=== PATIENT | female | born 1940 | race African-American/Black ===

== ENCOUNTER 2018-11-13 20:43 | Inpatient (IN) ==
--- NOTE | 2018-11-13 21:23 | ED ---
HPI General Chief complaint: Fall Stated complaint: Dizziness Time Seen by Provider: 11/13/18 20:45 Source: EMS Mode of arrival: EMS Limitations: altered mental status History of Present Illness HPI narrative: Patient is an 78-year-old female with history of dementia; presents to the emergency room after she was found on the ground at [facility]. As per staff, patient only ambulates with a walker, after she was found on the ground. It was unknown if patient had a syncopal episode. Staff reported that patient's pulse ox was 84% on room air, when patient arrived to the ER, patient was satting 86% on room air. She is not oxygen dependent. Patient is pleasantly demented with no complaints at this time. Patient cannot provide HPI. Related Data Allergies Allergy/AdvReac Type Severity Reaction Status Date / Time Penicillins Allergy Hives Verified 11/13/18 20:50 Review of Systems ROS: all other systems reviewed are negative [facility]LY [facility] Medical History Medical History Alzheimer disease (Acute) Anemia (Acute) Dementia (Acute) Depressive disorder (Acute) Edema (Acute) GERD (gastroesophageal reflux disease) (Acute) Hyperlipidemia (Acute) Hypothyroidism (Acute) Multiple sclerosis (Acute) Type 2 diabetes mellitus (Acute) Vitamin deficiency (Acute) Social History Social History Substance History: No History of Abuse Second Hand Smoke Exposure: No Smoking Status: Never smoker How Often Do You Have a Drink Containing Alcohol: Never Recent Travel in [facility] within the Last 8 Weeks: No Recent Out of Country Travel within the Last 8 Weeks: No Immunization History Tetanus Immunization: Unsure Exam Narrative Exam Narrative: GENERAL: NAD, patient is pleasantly demented SKIN: Focused skin assessment warm/dry. HEAD: Atraumatic. Normocephalic. EYES: Pupils equal and round. No scleral icterus. No injection or drainage. ENT: No nasal bleeding or discharge. Mucous membranes pink and moist. NECK: Trachea midline. No JVD. CARDIOVASCULAR: Regular rate and rhythm. No murmur appreciated. RESPIRATORY: No accessory muscle use. Clear to auscultation. Breath sounds equal bilaterally. GASTROINTESTINAL: Abdomen soft, non-tender, nondistended. Hepatic and splenic margins not palpable. MUSCULOSKELETAL: No obvious deformities. No clubbing. No cyanosis. No edema. NEUROLOGICAL: Awake and alert. Motor grossly within normal limits. Course Initial Documented Vital Signs Temperature 100 F H 11/13/18 20:50 Pulse Rate 105 H 11/13/18 20:50 Respiratory Rate 16 11/13/18 20:50 Blood Pressure 112/54 L 11/13/18 20:50 Pulse Oximetry 86 L 11/13/18 20:50 Last Documented Vital Signs Temperature 100 F H 11/13/18 20:50 Pulse Rate 99 H 11/13/18 22:18 Respiratory Rate 16 11/13/18 20:50 Blood Pressure 112/54 L 11/13/18 20:50 Pulse Oximetry 93 L 11/13/18 22:18 Medical Decision Making MDM Narrative Medical decision making narrative: During the course of the patients emergency department visit, the patients history, examination, and differential diagnosis were reviewed with the patient. The patient was placed on a steamblaster with oximetry and frequent blood pressure monitoring. The patient had an IV access obtained and blood work sent for analysis. The patient was initially provided IVF Patient was placed on 2 L nasal cannula oxygen, her pulse ox now 91%. The patients laboratory studies were reviewed and remarkable for wbc 15.7, hgb 11.9, hct 35.3, platelets 315 Sodium 137, potassium 4.3, BUN 32, creatinine 1.56, lactic acid is 1.3 Radiology studies were reviewed and remarkable for: Right lower lobe infiltrate Patient with hypoxia with a pulse ox of 86% on room air, she is not oxygen dependent. Patient also with a white blood cell count of 15.7, her symptoms are most likely due to a right lower lobe infiltrate. Plan to admit her to the hospital for antibiotic treatment and observation. Case reviewed with Dr. Salmon who accepts patient to her service Medical Screen Exam Complete: Yes Emergency Medical Condition: Yes Medical Records Medical records reviewed: Yes I reviewed the patient's medical records. Lab Data Result diagrams: 11/13/18 21:19 11/13/18 21:19 Lab Results 11/13/18 11/13/18 11/13/18 Range/Units :19 21: 21:19 WBC 15.7 H (4.0-11.0) th/mm3 RBC 3.85 L (4.00-5.30) mil/mm3 Hgb 11.9 (11.6-15.3) gm/dL Hct 35.3 (35.0-46.0) % MCV 91.9 (80.0-100.0) fL MCH 30.9 (27.0-34.0) pg MCHC 33.6 (32.0-36.0) % RDW 14.9 (11.6-17.2) % Plt Count 315 (150-450) th/mm3 MPV 8.9 (7.0-11.0) fL Neut % (Auto) 78.6 H (16.0-70.0) % Lymph % (Auto) 15.0 (9.0-44.0) % Dent % (Auto) 3.7 (0.0-8.0) % Eos % (Auto) 1.6 (0.0-4.0) % Baso % (Auto) 1.1 (0.0-2.0) % Neut # (Auto) 12.4 H (1.8-7.7) th/mm3 Lymph # (Auto) 2.4 (1.0-4.8) th/mm3 Dent # (Auto) 0.6 (0.0-0.9) th/mm3 Eos # (Auto) 0.3 (0.0-0.4) th/mm3 Baso # (Auto) 0.2 (0.0-0.2) th/mm3 WBC Differential . Differential Comment Auto diff final PT 10.2 (9.8-11.6) sec INR 1.0 Ratio APTT 25.7 (23.4-31.7) sec Sodium 137 (136-145) meq/L Potassium 4.3 (3.5-5.1) meq/L Chloride 106 (98-107) meq/L Carbon Dioxide 24.0 (21.0-32.0) meq/L Anion Gap 7 (5-15) meq/L BUN 32 H (7-18) mg/dL Creatinine 1.56 H (0.50-1.00) mg/dL Estimated GFR 39 L (>89) mL/min Random Glucose 147 H (74-106) mg/dL Lactic Acid (0.4-2.0) mmol/L Calcium 10.5 H (8.5-10.1) mg/dL Magnesium 2.2 (1.5-2.5) mg/dL Total Bilirubin 0.3 (0.2-1.0) mg/dL AST 21 (15-37) U/L ALT 16 (10-53) U/L Alkaline Phosphatase 59 (45-117) U/L Total Creatine Kinase 47 (26-192) U/L Troponin I Less than 0.02 L (0.02-0.05) ng/mL Total Protein 8.7 H (6.4-8.2) g/dL Albumin 3.5 (3.4-5.0) g/dL Urine Color (Yellw/Straw) Urine Clarity (Clear) Urine pH (5.0-8.5) Ur Specific Lincoln (1.002-1.035) Urine Protein (Neg-Trace) mg/dL Urine Glucose (UA) (Negative) mg/dL Urine Ketones (Negative) mg/dL Urine Occult Blood (Negative) Urine Nitrate (Negative) Urine Bilirubin (Negative) Urine Urobilinogen (Less than 2) mg/dL Ur Leukocyte Esterase (Negative) Urine RBC (0-3) /hpf Urine WBC (0-5) /hpf Urine Bacteria (None) /hpf Hyaline Casts (0-3) /lpf Urine Mucus (Occasional) /lpf Micro UA Comment Ur Microscopic Review Urine Culture Comments 11/13/18 11/13/18 Range/Units 21:19 21:19 WBC (4.0-11.0) th/mm3 RBC (4.00-5.30) mil/mm3 Hgb (11.6-15.3) gm/dL Hct (35.0-46.0) % MCV (80.0-100.0) fL MCH (27.0-34.0) pg MCHC (32.0-36.0) % RDW (11.6-17.2) % Plt Count (150-450) th/mm3 MPV (7.0-11.0) fL Neut % (Auto) (16.0-70.0) % Lymph % (Auto) (9.0-44.0) % Dent % (Auto) (0.0-8.0) % Eos % (Auto) (0.0-4.0) % Baso % (Auto) (0.0-2.0) % Neut # (Auto) (1.8-7.7) th/mm3 Lymph # (Auto) (1.0-4.8) th/mm3 Dent # (Auto) (0.0-0.9) th/mm3 Eos # (Auto) (0.0-0.4) th/mm3 Baso # (Auto) (0.0-0.2) th/mm3 WBC Differential Differential Comment PT (9.8-11.6) sec INR Ratio APTT (23.4-31.7) sec Sodium (136-145) meq/L Potassium (3.5-5.1) meq/L Chloride (98-107) meq/L Carbon Dioxide (21.0-32.0) meq/L Anion Gap (5-15) meq/L BUN (7-18) mg/dL Creatinine (0.50-1.00) mg/dL Estimated GFR (>89) mL/min Random Glucose (74-106) mg/dL Lactic Acid 1.3 (0.4-2.0) mmol/L Calcium (8.5-10.1) mg/dL Magnesium (1.5-2.5) mg/dL Total Bilirubin (0.2-1.0) mg/dL AST (15-37) U/L ALT (10-53) U/L Alkaline Phosphatase (45-117) U/L Total Creatine Kinase (26-192) U/L Troponin I (0.02-0.05) ng/mL Total Protein (6.4-8.2) g/dL Albumin (3.4-5.0) g/dL Urine Color Yellow (Yellw/Straw) Urine Clarity Hazy H (Clear) Urine pH 5.0 (5.0-8.5) Ur Specific Lincoln 1.012 (1.002-1.035) Urine Protein 100 H (Neg-Trace) mg/dL Urine Glucose (UA) Negative (Negative) mg/dL Urine Ketones Negative (Negative) mg/dL Urine Occult Blood Negative (Negative) Urine Nitrate Negative (Negative) Urine Bilirubin Negative (Negative) Urine Urobilinogen Less than 2 (Less than 2) mg/dL Ur Leukocyte Esterase Trace H (Negative) Urine RBC 1 (0-3) /hpf Urine WBC 7 H (0-5) /hpf Urine Bacteria Rare H (None) /hpf Hyaline Casts 4 (0-3) /lpf Urine Mucus Few H (Occasional) /lpf Micro UA Comment Cath-culture ind Ur Microscopic Review Not Reportable Urine Culture Comments Cath-cult indicated Imaging Data Radiologist's impression: Chest X-Ray 11/13/18 21:08 CONCLUSION: 1. Minimal patchy airspace disease in the right lung base.. Head CT 11/13/18 21:08 CONCLUSION: 1. No acute intracranial abnormality. . ECG Data EKG Prior to Arrival: No Attestation: I personally reviewed and interpreted this ECG as follows: Interpretation: EKG at 2102 shows sinus tachycardia at 100 bpm, QT/QTc 3 1 4/371 , there are no acute ST-T wave changes Discharge Plan Discharge Disposition Patient Disposition: ED Admit(ED Internal Use Only) Discharge Condition Condition: Fair Discharge Order Discharge Orders: ED Use Only Admit Order (Routine); Ordered 11/13/18 Ordered By: Kailee Centeno Physicians Team ED Provider: Kailee Centeno Primary Care Provider: UNKNOWN, Discharge Interventions Interventions: Vital Signs Last Done: 11/13/18 22:19 Status ED Status: With Doctor
--- NOTE | 2018-11-13 21:30 | CT ---
EXAM DATE: 11/13/2018 9:27 PM EST AGE/SEX: 78 years / Female INDICATIONS: Fall, weakness today. CLINICAL DATA: This is the patient's initial encounter. Patient reports that signs and symptoms have been present for 1 day and indicates a pain score of Nonresponsive. MEDICAL/SURGICAL HISTORY: Alzheimer's disease. Hypothyroidism. Diabetes. None. RADIATION DOSE: 37.76 CTDI (mGy) COMPARISON: No prior exams available for comparison. TECHNIQUE: CT of the head without contrast. Using automated exposure control and adjustment of the mA and/or kV according to patient size, radiation dose was kept as low as reasonably achievable to ob tain optimal diagnostic quality images. DICOM format image data is available electronically for revi ew and comparison. FINDINGS: Cerebrum: Moderate diffuse cerebral atrophy. The ventricles are normal for degree of atrophy. No addie dence of midline shift, mass lesion, hemorrhage or acute infarction. No extraaxial fluid collections are seen. Posterior Fossa: The cerebellum and brainstem are intact. The 4th ventricle is midline. The cerebe llopontine angle is unremarkable. Extracranial: The visualized portion of the orbits is intact. Skull: The calvaria is intact. No evidence of skull fracture. CONCLUSION: 1. No acute intracranial abnormality. . Electronically signed by: Prince Naylor MD Board Certified Radiologist 11/13/2018 9:29 PM CATHERINE [place]
[2018-11-13 21:32] LABS: Baso # (Auto) 0.2 th/mm3 (0.0-0.2); Baso % (Auto) 1.1 % (0.0-2.0); Eos # (Auto) 0.3 th/mm3 (0.0-0.4); Eos % (Auto) 1.6 % (0.0-4.0); Hematocrit 35.3 % (35.0-46.0); Hemoglobin 11.9 gm/dL (11.6-15.3); Lymph # (Auto) 2.4 th/mm3 (1.0-4.8); Mean Corpuscular HGB Conc 33.6 % (32.0-36.0); Mean Corpuscular Hemoglobin 30.9 pg (27.0-34.0); Mean Corpuscular Volume 91.9 fL (80.0-100.0); Mean Platelet Volume 8.9 fL (7.0-11.0); Mono # (Auto) 0.6 th/mm3 (0.0-0.9); Mono % (Auto) 3.7 % (0.0-8.0); Neut # (Auto) 12.4 th/mm3 (1.8-7.7); Neut % (Auto) 78.6 % (16.0-70.0); Platelet Count 315 th/mm3 (150-450); Red Blood Count 3.85 mil/mm3 (4.00-5.30); Red Cell Distribution Width 14.9 % (11.6-17.2); White Blood Count 15.7 th/mm3 (4.0-11.0)
--- NOTE | 2018-11-13 21:35 | XR ---
EXAM DATE: 11/13/2018 9:32 PM EST AGE/SEX: 78 years / Female INDICATIONS: Shortness of breath. CLINICAL DATA: This is the patient's initial encounter. Patient reports that signs and symptoms have been present for 1 day and indicates a pain score of 0/10. MEDICAL/SURGICAL HISTORY: . Alzheimer's disease. Hypothyroidism. Diabetes. None. . COMPARISON: No prior exams available for comparison. FINDINGS: Minimal patchy airspace disease in the right lung base. The cardiomediastinal contours are unremarkab le. Osseous structures are intact. CONCLUSION: 1. Minimal patchy airspace disease in the right lung base.. Electronically signed by: Prince Naylor MD Board Certified Radiologist 11/13/2018 9:33 PM CATHERINE T
[2018-11-13 21:41] LABS: Bacteria,Urine Rare /hpf; Bilirubin,Urine Negative (Negative); Clarity,Urine Hazy (Clear); Color,Urine Yellow (Yellw/Straw); Glucose,Urine (UA) Negative (Negative); Hyaline Casts,Urine 4 /lpf (0-3); Leukocyte Esterase,Urine Trace (Negative); Mucus,Urine Few /lpf (Occasional); Nitrite,Urine Negative (Negative); Specific Gravity,Urine 1.012 (1.002-1.035)
[2018-11-13 21:46] LABS: Activated Partial Thrombo Time 25.7 sec (23.4-31.7); Prothrombin Time 10.2 sec (9.8-11.6)
[2018-11-13 21:58] LABS: Albumin 3.5 g/dL (3.4-5.0); Anion Gap 7 meq/L (5-15); Aspartate Aminotransferase 21 U/L (15-37); Blood Urea Nitrogen 32 mg/dL (7-18); Calcium 10.5 mg/dL (8.5-10.1); Chloride 106 meq/L (98-107); Glomerular Filtration Rate 39 mL/min (>89); Glucose,Random 147 mg/dL (74-106); Magnesium 2.2 mg/dL (1.5-2.5); Potassium 4.3 meq/L (3.5-5.1); Sodium 137 meq/L (136-145)
[2018-11-13 21:59] LABS: Alanine Aminotransferase 16 U/L (10-53)
[2018-11-13 22:02] LABS: Alkaline Phosphatase 59 U/L (45-117); Total Protein 8.7 g/dL (6.4-8.2)
[2018-11-13 22:15] LABS: Creatine Kinase 47 U/L (26-192)
[2018-11-13] MEDS ORDERED: Bisacodyl 10 MG Supp RECTAL PRN (22:36)
[2018-11-13] MEDS ORDERED: Acetaminophen 325 MG Tablet PO PRN (22:36)
--- NOTE | 2018-11-13 22:40 | P.HPIM ---
History of Present Illness Primary Care Physician: UNKNOWN History of Present Illness: CT Head with no acute findings.This is an 86-year- old female with a PMH of HTN, Hyperlipidemia, Dementia and DM who was sent to the ER from [facility] after being found on the ground. Patient unable to provide any history due to underlying dementia. Unclear if pt had mechanical fall or syncopal event. Upon EMS arrival, pt noted to by hypoxic w/ O2 sat 87% on RA, no h/o COPD or O2 dependence. On arrival, BP 112/54, HR 105, O2 sat 86% on RA, Temp 100.0. Currently O2 sat 93% on 2L NC. Creatinine 1.56, no previous labs for comparison. WBC 15.7. UA negative for UTI. CXR with patchy airspace disease right lung base. S/p Levaquin in ER. Diagnosis (1) PNA (pneumonia): (2) Hypoxia: (3) Fall: (4) DM (diabetes mellitus): Inpatient Certification Inpatient Certification: I certify that the inpatient services were ordered in accordance with Medicare regulations governing the order. This includes certification that hospital inpatient services are reasonable and necessary and in the case of services not specified as inpatient-only under 42 CFR 419.22(n), that they are appropriately provided as inpatient services in accordance to with the 2-midnight benchmark under 43 CFR 412.3(e) Estimated Total Length of Stay (Days): 2 Plans for Post Hospital Care: Not yet determined Review of Systems PAST FAMILY HISTORY: Unknown ROS Unobtainable: unobtainable due to mental condition [facility] Medical History Medical History Alzheimer disease (Acute) Anemia (Acute) Dementia (Acute) Depressive disorder (Acute) Edema (Acute) GERD (gastroesophageal reflux disease) (Acute) Hyperlipidemia (Acute) Hypothyroidism (Acute) Multiple sclerosis (Acute) Type 2 diabetes mellitus (Acute) Vitamin deficiency (Acute) Social History Social History Substance History: No History of Abuse Second Hand Smoke Exposure: No Smoking Status: Never smoker How Often Do You Have a Drink Containing Alcohol: Never Recent Travel in [facility] within the Last 8 Weeks: No Recent Out of Country Travel within the Last 8 Weeks: No Immunization History Tetanus Immunization: Unsure Medications and Allergies Allergies Allergy/AdvReac Type Severity Reaction Status Date / Time Penicillins Allergy Hives Verified 11/13/18 20:50 Home Medications Medication Instructions Recorded Confirmed Type acetaminophen 650 mg PO Q6H PRN 11/13/18 11/13/18 History amlodipine 2.5 mg PO DAILY 11/13/18 11/13/18 History aspirin [Aspir-81] 81 mg PO DAILY 11/13/18 11/13/18 History cholecalciferol (vitamin D3) 4,000 unit PO DAILY 11/13/18 11/13/18 History [Vitamin D3] diclofenac sodium [Voltaren] 2 g TOPICAL QID 11/13/18 11/13/18 History donepezil [Aricept] 10 mg PO DAILY 11/13/18 11/13/18 History escitalopram oxalate 5 mg PO DAILY 11/13/18 11/13/18 History furosemide 20 mg PO DAILY 11/13/18 11/13/18 History gabapentin 400 mg PO BID 11/13/18 11/13/18 History gemfibrozil 600 mg PO BID 11/13/18 11/13/18 History insulin glargine U-300 conc 140 unit SUBCUT DAILY 11/13/18 11/13/18 History [Toujeo Max U-300 SoloStar] lactulose 10 g PO TID 11/13/18 11/13/18 History levothyroxine 25 mcg PO DAILY 11/13/18 11/13/18 History liraglutide [Victoza 2-Juanito] 1.8 mg SUBCUT DAILY 11/13/18 11/13/18 History loperamide 2 mg PO BID 11/13/18 11/13/18 History losartan [Cozaar] 50 mg PO DAILY 11/13/18 11/13/18 History memantine 10 mg PO BID 11/13/18 11/13/18 History multivitamin 1 cap PO DAILY 11/13/18 11/13/18 History omeprazole 20 mg PO DAILY 11/13/18 11/13/18 History psyllium husk (aspartame) 3.4 g PO DAILY 11/13/18 11/13/18 History [Metamucil Fiber Singles] spironolactone 25 mg PO DAILY 11/13/18 11/13/18 History vitamin E 400 unit PO DAILY 11/13/18 11/13/18 History Active Medications: Active Medications Acetaminophen (Tylenol) 650 mg PO Q4H PRN PRN Reason: Temp > 100.4 Al Hydroxide/Mg Hydroxide (Milk Of Magnesia Liq) 30 ml PO Q12H PRN PRN Reason: Mild Constipation Albuterol (Duoneb Neb (Prn)) 1 ampul NEB Q4HR NEB PRN PRN Reason: SOB/WHEEZING Bisacodyl (Dulcolax Supp) 10 mg RECTAL DAILY PRN PRN Reason: SEVERE CONSITIPATION Levofloxacin/Dextrose (Levaquin 750 Mg Premix Inj) 150 mls @ 100 mls/hr IV.SIG ONCE ONE Stop: 11/13/18 23:14 Last Admin: 11/13/18 22:13 Dose: 100 mls/hr Levofloxacin/Dextrose (Levaquin 750 Mg Premix Inj) 150 mls @ 100 mls/hr IV.SIG Q24H PING Lactulose (Lactulose Liq) 30 ml PO DAILY PRN PRN Reason: SEVERE CONSITIPATION Ondansetron HCl (Zofran Inj) 4 mg IV.PUSH Q6H PRN PRN Reason: NAUSEA OR VOMITING Senna/Docusate Sodium (Mary-Colace) 1 tab PO BID PING Sennosides (Senokot) 17.2 mg PO Q12H PRN PRN Reason: Moderate Constipation Sodium Chloride (Ns Flush) 2 ml IV.FLUSH BID PING Sodium Chloride (Ns Flush) 2 ml IV.FLUSH PRN PRN PRN Reason: FLUSH AFTER USING IV ACCESS Physical Exam Vital signs: Last Vital Signs Temp 100 F H 11/13/18 20:50 Pulse 99 H 11/13/18 22:18 Resp 16 11/13/18 20:50 BP 97/52 L 11/13/18 22:19 Pulse Ox 93 L 11/13/18 22:18 Intake & Output 11/11/18 11/12/18 11/13/18 11/14/18 06:59 06:59 06:59 06:59 Weight 62.596 kg Narrative: PE: GENERAL: Pleasantly demented elderly female in no acute distress. SKIN: Focused skin assessment warm and dry. HEENT: PERRLA, EOMI. No scleral icterus or conjunctival pallor. No lid lag or facial droop. CARDIOVASCULAR: Regular rate and rhythm. No obvious murmurs to auscultation. No chest tenderness to palpation. RESPIRATORY: No obvious rhonchi or wheezing. Clear to auscultation. Breath sounds equal bilaterally. GASTROINTESTINAL: Abdomen soft, non-tender, nondistended. BS normal. MUSCULOSKELETAL: Extremities without clubbing, cyanosis, or edema. No obvious deformities. NEUROLOGICAL: Awake, alert. No focal neurologic deficits. Moving both upper and lower extremities spontaneously. PSYCHIATRIC: Appropriate mood and affect. Insight and judgment normal. Results Labs CBC & Chem 7: 11/13/18 21:19 11/13/18 21:19 Imaging Impressions Chest X-Ray 11/13/18 21:08 CONCLUSION: 1. Minimal patchy airspace disease in the right lung base.. Head CT 11/13/18 21:08 CONCLUSION: 1. No acute intracranial abnormality. . Caprini VTE Risk Assessment Caprini VTE Risk Assessment: No/Low Risk (score <= 1) Caprini Risk Assessment Model: Point Value = 1 Point Value = 2 Point Value = 3 Point Value = 5 Age 41-60 Minor surgery BMI > 25 kg/m2 Swollen legs Varicose veins or History of unexplained or recurrent spontaneous Oral contraceptives or hormone replacement Sepsis (< 1 month) Serious lung disease, including pneumonia (< 1 month) Abnormal pulmonary function Acute myocardial infarction Congestive heart failure (< 1 month) History of inflammatory bowel disease Medical patient at bed rest Age 61-74 Arthroscopic surgery Major open surgery (> 45 min) Laparoscopic surgery (> 45 min) Malignancy Confined to bed (> 72 hours) Immobilizing plaster cast Central venous access Age >= 75 History of VTE Family history of VTE Factor V Leiden Prothrombin [id number] Lupus anticoagulant Anticardiolipin antibodies Elevated serum homocysteine Heparin-induced thrombocytopenia Other congenital or acquired thrombophilia Stroke (< 1 month) Elective arthroplasty Hip, pelvis, or leg fracture Acute spinal cord injury (< 1 month) Prophylaxis Regimen: Total Risk Factor Score Risk Level Prophylaxis Regimen 0-1 Low Early ambulation 2 Moderate Order ONE of the following: *Sequential Compression Device (SCD) *Heparin 5000 units SQ BID 3-4 Higher Order ONE of the following medications: *Heparin 5000 units SQ TID *Enoxaparin/Lovenox 40 mg SQ daily (WT < 150 kg, CrCl > 30 mL/min) *Enoxaparin/Lovenox 30 mg SQ daily (WT < 150 kg, CrCl > 10-29 mL/min) *Enoxaparin/Lovenox 30 mg SQ BID (WT < 150 kg, CrCl > 30 mL/min) AND/OR *Sequential Compression Device (SCD) 5 or more Highest Order ONE of the following medications: *Heparin 5000 units SQ TID (Preferred with Epidurals) *Enoxaparin/Lovenox 40 mg SQ daily (WT < 150 kg, CrCl > 30 mL/min) *Enoxaparin/Lovenox 30 mg SQ daily (WT < 150 kg, CrCl > 10-29 mL/min) *Enoxaparin/Lovenox 30 mg SQ BID (WT < 150 kg, CrCl > 30 mL/min) AND *Sequential Compression Device (SCD) Assessment and Plan (1) PNA (pneumonia): Code(s): J18.9 - Pneumonia, unspecified organism Status: Acute (2) Hypoxia: Code(s): R09.02 - Hypoxemia Status: Acute (3) Fall: Code(s): W19.XXXA - Unspecified fall, initial encounter Status: Acute (4) DM (diabetes mellitus): Code(s): E11.9 - Type 2 diabetes mellitus without complications Status: Acute A/P: 1. Fall: found down at [facility], unclear if syncope/mechanical fall. Pt with no complaints. CT Head w/ no acute findings. Trop negative, check serial cardiac enzymes to eval for possible underlying ischemia. PT for eval/ tx. 2. Hypoxia: O2 sat 87% on RA, no reported h/o COPD or O2 Dependence, likely secondary to PNA, monitor O2, re-eval prior to d/c for home O2 needs. 3. PNA: CXR w/ right base infiltrate, s/p Levaquin IV, continue w/ IV Abx, DuoNeb prn. 4. DM: Sliding scale w/ Accu-cheks 5. Dementia: Pleasantly demented, at baseline, resume home medications. 6. DVT Prophylaxis: SCD/Teds 7. Social work for d/c planning as needed. 8. Case discussed w/ ER physician at length, labs/records/imaging reviewed by me.
[2018-11-13] MEDS ORDERED: Dextrose 50% in Water 50 ML Vial IV.PUSH PRN (22:44)
[2018-11-14 04:05] LABS: Baso # (Auto) 0.3 th/mm3 (0.0-0.2); Baso % (Auto) 1.9 % (0.0-2.0); Eos # (Auto) 0.2 th/mm3 (0.0-0.4); Eos % (Auto) 1.4 % (0.0-4.0); Hematocrit 32.1 % (35.0-46.0); Lymph # (Auto) 3.2 th/mm3 (1.0-4.8); Lymph % (Auto) 24.4 % (9.0-44.0); Mean Corpuscular HGB Conc 34.1 % (32.0-36.0); Mean Corpuscular Hemoglobin 31.2 pg (27.0-34.0); Mean Corpuscular Volume 91.4 fL (80.0-100.0); Mean Platelet Volume 8.1 fL (7.0-11.0); Mono % (Auto) 7.9 % (0.0-8.0); Neut # (Auto) 8.5 th/mm3 (1.8-7.7); Neut % (Auto) 64.4 % (16.0-70.0); Platelet Count 287 th/mm3 (150-450); Red Blood Count 3.52 mil/mm3 (4.00-5.30); White Blood Count 13.2 th/mm3 (4.0-11.0)
[2018-11-14 04:29] LABS: Alanine Aminotransferase 13 U/L (10-53); Anion Gap 9 meq/L (5-15); Aspartate Aminotransferase 19 U/L (15-37); Blood Urea Nitrogen 31 mg/dL (7-18); Calcium 10.2 mg/dL (8.5-10.1); Carbon Dioxide 23.4 meq/L (21.0-32.0); Chloride 107 meq/L (98-107); Glomerular Filtration Rate 45 mL/min (>89); Glucose,Random 65 mg/dL (74-106); Potassium 4.3 meq/L (3.5-5.1); Sodium 139 meq/L (136-145)
[2018-11-14 04:33] LABS: Alkaline Phosphatase 50 U/L (45-117)
[2018-11-14] MEDS: Insulin NovoLOG Aspart Correctional Sugar Inj SQ SCH ×4 (07:57→23:21)
[2018-11-14] MEDS: Oseltamivir Liq 30 MG/5 ML Oral Syringe PO SCH ×3 (08:44→23:21)
[2018-11-14] MEDS: Escitalopram 10 MG Tablet PO SCH (08:45)
[2018-11-14] MEDS: Gabapentin 400 MG Capsule PO SCH ×2 (08:46→23:20)
[2018-11-14] MEDS: Senna/Docusate Sodium 8.6/50 MG Tablet PO SCH ×2 (08:46→23:21)
[2018-11-14] MEDS ORDERED: Oseltamivir Phosphate 30 MG Capsule PO SCH (09:00)
--- NOTE | 2018-11-14 10:12 | P.PNIM ---
Subjective Interval history: Follow-up visit influenza, pneumonia, status post fall. Patient seen and examined today. Awake and alert. States it is 2012. States that she lives just "right there." Patient is pleasant. Denies any pain or discomfort. Denies fevers, chills, nausea, vomiting, diarrhea. Denies any cough, expectoration, denies any dysuria. Physical Exam Vital signs: Vital Signs 11/13/18 20:50 11/13/18 20:54 11/13/18 22:18 Temperature 100 F H Pulse Rate 105 H 99 H Respiratory Rate 16 Blood Pressure 112/54 L Pulse Oximetry 86 L 91 L 93 L 11/13/18 22:19 11/14/18 00:25 11/14/18 04:15 Temperature 99.7 F H 97.3 F L Pulse Rate 91 H 72 Respiratory Rate 18 18 Blood Pressure 97/52 L 116/20 L 92/51 L Pulse Oximetry 95 97 11/14/18 08:25 11/14/18 09:18 Temperature 97.2 F L Pulse Rate 71 Respiratory Rate 16 Blood Pressure 110/59 L Pulse Oximetry 96 95 Intake & Output 11/13/18 11/14/18 11/14/18 18:59 06:59 18:59 Intake Total 150 / 150 Balance 150 / 150 Weight 62.5 kg Intake: IV 150 / 150 Levaquin 750 mg Premix Inj 150 150 / 150 ML @ 100 mls/hr IV.SIG ONCE ONE Rx#:[id number] Other: # Voids 1 Narrative: GENERAL: This is a pleasantly confused, well-developed patient, in no apparent distress. SKIN: Warm and dry HEENT: Normocephalic. Pupils equal round and reactive. Nose without bleeding. Airway patent. NECK: Trachea midline. CARDIOVASCULAR: Regular rate and rhythm without murmurs, gallops, or rubs. RESPIRATORY: Diminished bases no wheezes, rales, or rhonchi. GASTROINTESTINAL: Abdomen soft, non-tender, nondistended. Bowel Sounds normoactive x4. MUSCULOSKELETAL: Extremities without clubbing, cyanosis, or edema. NEUROLOGICAL: Awake and alert. Moves all extremities. Normal speech. Confused. Results - Labs CBC & Chem 7: 11/14/18 03:53 11/14/18 03:53 Laboratory Results - last 24 hr 11/13/18 11/13/18 11/13/18 21:19 21:19 21:19 WBC 15.7 H RBC 3.85 L Hgb 11.9 Hct 35.3 MCV 91.9 MCH 30.9 MCHC 33.6 RDW 14.9 Plt Count 315 MPV 8.9 Neut % (Auto) 78.6 H Lymph % (Auto) 15.0 Gillespie % (Auto) 3.7 Eos % (Auto) 1.6 Baso % (Auto) 1.1 Neut # (Auto) 12.4 H Lymph # (Auto) 2.4 Gillespie # (Auto) 0.6 Eos # (Auto) 0.3 Baso # (Auto) 0.2 WBC Differential . Differential Comment Auto diff final PT 10.2 INR 1.0 APTT 25.7 Sodium 137 Potassium 4.3 Chloride 106 Carbon Dioxide 24.0 Anion Gap 7 BUN 32 H Creatinine 1.56 H Estimated GFR 39 L POC Glucose Random Glucose 147 H Lactic Acid Calcium 10.5 H Magnesium 2.2 Total Bilirubin 0.3 AST 21 ALT 16 Alkaline Phosphatase 59 Total Creatine Kinase 47 Troponin I Less than 0.02 L Total Protein 8.7 H Albumin 3.5 Urine Color Urine Clarity Urine pH Ur Specific [place] Urine Protein Urine Glucose (UA) Urine Ketones Urine Occult Blood Urine Nitrate Urine Bilirubin Urine Urobilinogen Ur Leukocyte Esterase Urine RBC Urine WBC Urine Bacteria Hyaline Casts Urine Mucus Micro UA Comment Ur Microscopic Review Urine Culture Comments 11/13/18 11/13/1818 21:19 21:19 03:53 WBC 13.2 H RBC 3.52 L Hgb 11.0 L Hct 32.1 L MCV 91.4 MCH 31.2 MCHC 34.1 RDW 15.0 Plt Count 287 MPV 8.1 Neut % (Auto) 64.4 Lymph % (Auto) 24.4 Gillespie % (Auto) 7.9 Eos % (Auto) 1.4 Baso % (Auto) 1.9 Neut # (Auto) 8.5 H Lymph # (Auto) 3.2 Gillespie # (Auto) 1.0 H Eos # (Auto) 0.2 Baso # (Auto) 0.3 H WBC Differential . Differential Comment Auto diff final PT INR APTT Sodium Potassium Chloride Carbon Dioxide Anion Gap BUN Creatinine Estimated GFR POC Glucose Random Glucose Lactic Acid 1.3 Calcium Magnesium Total Bilirubin AST ALT Alkaline Phosphatase Total Creatine Kinase Troponin I Total Protein Albumin Urine Color Yellow Urine Clarity Hazy H Urine pH 5.0 Ur Specific [place] 1.012 Urine Protein 100 H Urine Glucose (UA) Negative Urine Ketones Negative Urine Occult Blood Negative Urine Nitrate Negative Urine Bilirubin Negative Urine Urobilinogen Less than 2 Ur Leukocyte Esterase Trace H Urine RBC 1 Urine WBC 7 H Urine Bacteria Rare H Hyaline Casts 4 Urine Mucus Few H Micro UA Comment Cath-culture ind Ur Microscopic Review Not Reportable Urine Culture Comments Cath-cult indicated 11/14/18 11/14/18 11/14/18 03:53 07:56 09:26 WBC RBC Hgb Hct MCV MCH MCHC RDW Plt Count MPV Neut % (Auto) Lymph % (Auto) Gillespie % (Auto) Eos % (Auto) Baso % (Auto) Neut # (Auto) Lymph # (Auto) Gillespie # (Auto) Eos # (Auto) Baso # (Auto) WBC Differential Differential Comment PT INR APTT Sodium 139 Potassium 4.3 Chloride 107 Carbon Dioxide 23.4 Anion Gap 9 BUN 31 H Creatinine 1.38 H Estimated GFR 45 L POC Glucose 67 L 113 H Random Glucose 65 L Lactic Acid Calcium 10.2 H Magnesium Total Bilirubin 0.2 AST 19 ALT 13 Alkaline Phosphatase 50 Total Creatine Kinase Troponin I Less than 0.02 L Total Protein 8.0 D Albumin 3.0 L Urine Color Urine Clarity Urine pH Ur Specific [place] Urine Protein Urine Glucose (UA) Urine Ketones Urine Occult Blood Urine Nitrate Urine Bilirubin Urine Urobilinogen Ur Leukocyte Esterase Urine RBC Urine WBC Urine Bacteria Hyaline Casts Urine Mucus Micro UA Comment Ur Microscopic Review Urine Culture Comments Microbiology 11/13/18 22:06 Nasal Wash Influenza Types A,B Antigen - Final Positive for Flu A Antigen - Imaging Impressions Chest X-Ray 11/13/18 21:08 CONCLUSION: 1. Minimal patchy airspace disease in the right lung base.. Head CT 11/13/18 21:08 CONCLUSION: 1. No acute intracranial abnormality. . Assessment and Plan - Assessment (1) PNA (pneumonia) Code(s): J18.9 - Pneumonia, unspecified organism Status: Acute (2) Hypoxia Code(s): R09.02 - Hypoxemia Status: Acute (3) Fall Code(s): W19.XXXA - Unspecified fall, initial encounter Status: Acute (4) DM (diabetes mellitus) Code(s): E11.9 - Type 2 diabetes mellitus without complications Status: Acute Plan: A/P: 1. Fall: found down at [facility], unclear if syncope/mechanical fall. Pt with no complaints. CT Head w/ no acute findings. Trop negative, check serial cardiac enzymes to eval for possible underlying ischemia. PT for eval/ tx. 2. Hypoxia: O2 sat 87% on RA, no reported h/o COPD or O2 Dependence, likely secondary to PNA, monitor O2, re-eval prior to d/c for home O2 needs. 3. PNA: CXR w/ right base infiltrate, s/p Levaquin IV, continue w/ IV Abx, DuoNeb prn. 4. DM: Sliding scale w/ Accu-cheks 5. Dementia: Pleasantly demented, at baseline, resume home medications. 6. DVT Prophylaxis: SCD/Teds 7. Social work for d/c planning as needed. 8. Case discussed w/ ER physician at length, labs/records/imaging reviewed by me. - Plan 86-year-old female with a PMH of HTN, Hyperlipidemia, Dementia and DM who was sent to the ER from [facility] after being found on the ground. Status post fall at [facility] -unclear if syncope/mechanical fall -CT Head w/ no acute findings. Trop negative x2 -Patient without any complaints of pain or discomfort. Able to stand up and transfer to [facility] earlier with assistance of [employer] -PT for eval/tx Acute pneumonia, secondary to influenza Hypoxia, O2 sat 87% on RA, no reported h/o COPD or O2 Dependence -Chest x-ray showed right base infiltrates -Status post Levaquin IV, will continue, will switch to p.o. -Influenza swab positive, droplet precaution -Start Tamiflu -Duo nebs as needed -Keep O2 sat greater than 92%, O2 nasal cannula as needed. DM2, diabetic nephropathy No acute complication -Sliding scale w/ Accu-cheks -Monitor for hypoglycemia Dementia -Pleasantly demented, at baseline, resume home medications. Full code. DVT Prophylaxis SCD/Teds Discussed Condition With: Patient, nursing, Dr. Crowe, case management Discharge Planning: Plan to discharge back to [facility] within 1-2 days. If significantly improved tomorrow we may discharge tomorrow.
[2018-11-14] MEDS: Sod Chloride 0.9% Inj 1,000 ML IV.CONT SCH (15:15)
[2018-11-15] MEDS: Sod Chloride 0.9% Inj 1,000 ML IV.CONT SCH (06:19)
[2018-11-15] MEDS ORDERED: levoFLOXacin 500 MG Tablet PO SCH (09:00)
--- NOTE | 2018-11-15 09:46 | P.DS ---
Date of admission: 11/13/18 22:25 Primary care physician: UNKNOWN Attending physician on discharge: Surya King Anticipated date of discharge: 11/15/18 Brief History from admission: CT Head with no acute findings.This is an 86-year-old female with a PMH of HTN , Hyperlipidemia, Dementia and DM who was sent to the ER from [facility] after being found on the ground. Patient unable to provide any history due to underlying dementia. Unclear if pt had mechanical fall or syncopal event. Upon EMS arrival, pt noted to by hypoxic w/ O2 sat 87% on RA, no h/o COPD or O2 dependence. On arrival, BP 112/54, HR 105, O2 sat 86% on RA, Temp 100.0. Currently O2 sat 93% on 2L NC. Creatinine 1.56, no previous labs for comparison. WBC 15.7. UA negative for UTI. CXR with patchy airspace disease right lung base. S/p Levaquin in ER. Patient update on day of discharge: Follow-up visit influenza, pneumonia, status post fall. Patient seen and examined today. Awake and alert. Reports she is doing a lot better. States she feels good able to sit up at the edge of the bed and eat her breakfast by herself. States physical therapy has seen her and did some exercises. More coherent with conversation but still has some confusion on the date and the place where she is at. Denies pain and discomfort. Denies SOB/ dyspnea. Denies chest pain, palpitations, headaches, dizziness. Denies fevers, chills, n/ v/d. Denies dysuria. DS: Diagnosis - Discharge Diagnosis (1) PNA (pneumonia) Status: Acute (2) Hypoxia Status: Acute (3) Fall Status: Acute (4) DM (diabetes mellitus) Status: Acute (5) Pneumonia and influenza Status: Acute DS: Medications - Discharge Medications Prescriptions: levofloxacin 500 mg PO DAILY 5 Days #5 tab oseltamivir [Tamiflu] 30 mg PO BID 4 Days #8 cap DS: Summary Hospital Course: 86-year-old female with a PMH of HTN, Hyperlipidemia, Dementia and DM who was sent to the ER from [facility] after being found on the ground. CT of the head without any acute findings, this is unclear if it is a mechanical or syncopal fall at [facility]. Patient without any complaints of pain or discomfort. [facility]ble [facility] stand [facility] and [facility] with assistance of [employer]. Physical therapy has evaluated the patient and has recommended for PT at rehabilitation center as patient has unsteady gait. Found to have acute pneumonia. Chest x-ray showed right base infiltrates. She got IV Levaquin and was switched to p.o. Influenza swab was also positive and was started on Tamiflu. Duo nebs were provided with the patient which significantly improves her oxygenation. States her breathing has been significantly improved. O2 sat resting and with exertion between 96-98% on RA. Other comorbid conditions such as diabetes has been addressed by providing patient with insulin sliding scale. Blood glucose has been 70s-150s. Patient creatinine was initially 1.56 possibly with chronic kidney disease secondary to diabetes with diabetic nephropathy. This has significantly improved to 1.19. She will continue with antibiotic Levaquin in the outpatient and also Tamiflu which has been dose accordingly to her renal function. Patient has met maximal benefits of hospitalization. Clinically stable for discharge and [facility] facility [facility]. - Time Spent with Patient Total time spent providing and/or coordinating discharge services: Greater than 30 minutes - Quality: VTE Deep Vein Thrombosis/Pulmonary Embolism Present on Admission: No Exam Vital signs: Vital Signs 11/14/18 12:26 11/14/18 16:59 11/14/18 20:00 Temperature 97.6 F 98.2 F 97.9 F Pulse Rate 70 67 92 H Respiratory Rate 14 14 16 Blood Pressure 97/51 L 114/57 L 99/65 L Pulse Oximetry 94 L 98 94 L 11/15/18 00:00 11/15/18 04:00 11/15/18 08:00 Temperature 98.0 F 97.9 F 97.4 F L Pulse Rate 63 56 L 57 L Respiratory Rate 20 17 20 Blood Pressure 122/65 106/53 L 106/59 L Pulse Oximetry 98 97 99 Intake & Output 11/14/18 11/15/18 11/15/18 18:59 06:59 18:59 Output Total 600 / 600 Balance -600 / -600 Weight 62.5 kg Output: Urine 600 / 600 Other: Date of Last Bowel Movement 11/14/18 # Bowel Movements 1 Narrative: GENERAL: This is a pleasantly confused, well-developed patient, in no apparent distress. SKIN: Warm and dry HEENT: Normocephalic. Pupils equal round and reactive. Nose without bleeding. Airway patent. NECK: Trachea midline. CARDIOVASCULAR: Regular rate and rhythm without murmurs, gallops, or rubs. RESPIRATORY: No wheezes, rales, or rhonchi. Clear to auscultation GASTROINTESTINAL: Abdomen soft, non-tender, nondistended. Bowel Sounds normoactive x4. MUSCULOSKELETAL: Extremities without clubbing, cyanosis, or edema. NEUROLOGICAL: Awake and alert. Moves all extremities. Normal speech. Confused. Results Procedures completed during hospitalization: None Labs on day of discharge: Labs from last 24 hours 11/15/18 11/14/18 11/14/18 09:07 23:20 16:46 POC Glucose 156 H 85 76 Troponin I 11/14/18 11/14/18 12:39 10:12 POC Glucose 72 Troponin I Less than 0.02 L Preliminary micro results at discharge 11/13/18 21:19 Urine Culture - Preliminary Clean Catch Urine No growth in 24 hours 11/13/18 21:13 Aerobic Blood Culture - Preliminary Blood - Peripheral No growth in 1 day Anaerobic Blood Culture - Preliminary No growth in 1 day 11/13/18 21:19 Aerobic Blood Culture - Preliminary Blood - Peripheral No growth in 1 day Anaerobic Blood Culture - Preliminary No growth in 1 day - Impressions ITS Impressions Chest X-Ray 11/13/18 21:08 CONCLUSION: 1. Minimal patchy airspace disease in the right lung base.. Head CT 11/13/18 21:08 CONCLUSION: 1. No acute intracranial abnormality. . Discharge Plan - Discharge Disposition Patient Disposition: Discharge to SNF - Discharge Condition Condition: Stable - Discharge Order Discharge Orders: Discharge Order (Routine); Ordered 11/15/18 Ordered By: Quoc Junior - Physicians Team Primary Care Provider: UNKNOWN, Attending Provider: Surya King
--- NOTE | 2018-11-15 09:46 | P.PNIM ---
Subjective Interval history: Follow-up visit influenza, pneumonia, status post fall. Patient seen and examined today. Awake and alert. Reports she is doing a lot better. States she feels good able to sit up at the edge of the bed and eat her breakfast by herself. States physical therapy has seen her and did some exercises. More coherent with conversation but still has some confusion on the date and the place where she is at. Denies pain and discomfort. Denies SOB/ dyspnea. Denies chest pain, palpitations, headaches, dizziness. Denies fevers, chills, n/ v/d. Denies dysuria. Physical Exam Vital signs: Vital Signs 11/14/18 12:26 11/14/18 16:59 11/14/18 20:00 Temperature 97.6 F 98.2 F 97.9 F Pulse Rate 70 67 92 H Respiratory Rate 14 14 16 Blood Pressure 97/51 L 114/57 L 99/65 L Pulse Oximetry 94 L 98 94 L 11/15/18 00:00 11/15/18 04:00 11/15/18 08:00 Temperature 98.0 F 97.9 F 97.4 F L Pulse Rate 63 56 L 57 L Respiratory Rate 20 17 20 Blood Pressure 122/65 106/53 L 106/59 L Pulse Oximetry 98 97 99 Intake & Output 11/14/18 11/15/18 11/15/18 18:59 06:59 18:59 Output Total 600 / 600 Balance -600 / -600 Weight 62.5 kg Output: Urine 600 / 600 Other: Date of Last Bowel Movement 11/14/18 # Bowel Movements 1 Narrative: GENERAL: This is a pleasantly confused, well-developed patient, in no apparent distress. SKIN: Warm and dry HEENT: Normocephalic. Pupils equal round and reactive. Nose without bleeding. Airway patent. NECK: Trachea midline. CARDIOVASCULAR: Regular rate and rhythm without murmurs, gallops, or rubs. RESPIRATORY: No wheezes, rales, or rhonchi. Clear to auscultation GASTROINTESTINAL: Abdomen soft, non-tender, nondistended. Bowel Sounds normoactive x4. MUSCULOSKELETAL: Extremities without clubbing, cyanosis, or edema. NEUROLOGICAL: Awake and alert. Moves all extremities. Normal speech. Confused. Results - Labs CBC & Chem 7: 11/15/18 08:53 11/15/18 08:53 Laboratory Results - last 24 hr 11/14/18 11/14/18 11/14/18 10:12 12:39 16:46 POC Glucose 72 76 Troponin I Less than 0.02 L 11/14/18 11/15/18 23:20 09:07 POC Glucose 85 156 H Troponin I Microbiology 11/13/18 21:19 Clean Catch Urine Urine Culture - Preliminary No growth in 24 hours 11/13/18 21:13 Blood - Peripheral Aerobic Blood Culture - Preliminary No growth in 1 day 11/13/18 21:13 Blood - Peripheral Anaerobic Blood Culture - Preliminary No growth in 1 day 11/13/18 21:19 Blood - Peripheral Aerobic Blood Culture - Preliminary No growth in 1 day 11/13/18 21:19 Blood - Peripheral Anaerobic Blood Culture - Preliminary No growth in 1 day Assessment and Plan - Assessment (1) PNA (pneumonia) Code(s): J18.9 - Pneumonia, unspecified organism Status: Acute (2) Hypoxia Code(s): R09.02 - Hypoxemia Status: Acute (3) Fall Code(s): W19.XXXA - Unspecified fall, initial encounter Status: Acute (4) DM (diabetes mellitus) Code(s): E11.9 - Type 2 diabetes mellitus without complications Status: Acute Plan: A/P: 1. Fall: found down at [facility], unclear if syncope/mechanical fall. Pt with no complaints. CT Head w/ no acute findings. Trop negative, check serial cardiac enzymes to eval for possible underlying ischemia. PT for eval/ tx. 2. Hypoxia: O2 sat 87% on RA, no reported h/o COPD or O2 Dependence, likely secondary to PNA, monitor O2, re-eval prior to d/c for home O2 needs. 3. PNA: CXR w/ right base infiltrate, s/p Levaquin IV, continue w/ IV Abx, DuoNeb prn. 4. DM: Sliding scale w/ Accu-cheks 5. Dementia: Pleasantly demented, at baseline, resume home medications. 6. DVT Prophylaxis: SCD/Teds 7. Social work for d/c planning as needed. 8. Case discussed w/ ER physician at length, labs/records/imaging reviewed by me. - Plan 86-year-old female with a PMH of HTN, Hyperlipidemia, Dementia and DM who was sent to the ER from [facility] after being found on the ground. Status post fall at [facility] -unclear if syncope/mechanical fall -CT Head w/ no acute findings. Trop negative x2 -Patient without any complaints of pain or discomfort. [facility] [employer] -PT for eval/tx Acute pneumonia, secondary to influenza Hypoxia, O2 sat 87% on RA, no reported h/o COPD or O2 Dependence -Chest x-ray showed right base infiltrates -Status post Levaquin IV, will continue, will switch to p.o. -Influenza swab positive, droplet precaution -Start Tamiflu -Duo nebs as needed -Keep O2 sat greater than 92%, O2 nasal cannula as needed. -Improving. DM2, diabetic nephropathy No acute complication -Sliding scale w/ Accu-cheks -Monitor for hypoglycemia Dementia -Pleasantly demented, at baseline, resume home medications. Full code. DVT Prophylaxis SCD/Teds Discussed Condition With: Patient, nursing, CM Discharge Planning: Plan to discharge to [facility] today.
[2018-11-15 10:00] LABS: Baso # (Auto) 0.1 th/mm3 (0.0-0.2); Baso % (Auto) 0.9 % (0.0-2.0); Eos # (Auto) 0.5 th/mm3 (0.0-0.4); Eos % (Auto) 6.3 % (0.0-4.0); Hematocrit 31.5 % (35.0-46.0); Hemoglobin 10.8 gm/dL (11.6-15.3); Lymph # (Auto) 2.6 th/mm3 (1.0-4.8); Lymph % (Auto) 32.7 % (9.0-44.0); Mean Corpuscular HGB Conc 34.3 % (32.0-36.0); Mean Corpuscular Hemoglobin 31.8 pg (27.0-34.0); Mean Corpuscular Volume 92.7 fL (80.0-100.0); Mean Platelet Volume 8.7 fL (7.0-11.0); Mono # (Auto) 0.7 th/mm3 (0.0-0.9); Mono % (Auto) 9.1 % (0.0-8.0); Platelet Count 285 th/mm3 (150-450); Red Cell Distribution Width 14.8 % (11.6-17.2); White Blood Count 7.9 th/mm3 (4.0-11.0)
[2018-11-15 10:20] LABS: Calcium 10.3 mg/dL (8.5-10.1); Potassium 4.1 meq/L (3.5-5.1)
[2018-11-15] MEDS: Insulin NovoLOG Aspart Correctional Sugar Inj SQ SCH ×2 (10:57→13:38)
[2018-11-15] MEDS: Gabapentin 400 MG Capsule PO SCH (10:57)
[2018-11-15] MEDS: Escitalopram 10 MG Tablet PO SCH (10:57)
[2018-11-15] MEDS: Senna/Docusate Sodium 8.6/50 MG Tablet PO SCH (10:57)
[2018-11-15] MEDS: Oseltamivir Liq 30 MG/5 ML Oral Syringe PO SCH (11:03)
[2018-11-15 13:08] VITALS: RESP 18
[2018-11-15 16:33] VITALS: BP 120/59; PULSE 69; TEMP 99.9; O2SAT 99
--- NOTE | 2018-11-16 00:43 | ECG ---
Date Performed: 11/13/2018 Time Performed: 21:02:53 PTAGE: 78 years EKG: SINUS TACHYCARDIA ABNORMAL RHYTHM ECG NO PREVIOUS TRACING DOCTOR: Eliecer Fraire Interpretating Date/Time 11/16/2018 00:43:03
== END 2018-11-15 16:10 ==
LOC: NEPE 20:43 → NEDA 22:25 → N05 11-14 00:36
PROVIDERS: ADMIT Internal Medicine; ATTEND Internal Medicine
DX: J11.00 Influenza due to unidentified influenza virus with unspecified type of pneumonia; R09.02 Hypoxemia; E11.21 Type 2 diabetes mellitus with diabetic nephropathy; F32.9 Major depressive disorder, single episode, unspecified; E03.9 Hypothyroidism, unspecified; K21.9 Gastro-esophageal reflux disease without esophagitis; Z88.0 Allergy status to penicillin; W19.XXXA Unspecified fall, initial encounter; F02.80 Dementia in other diseases classified elsewhere, unspecified severity, without behavioral disturbance, psychotic disturbance, mood disturbance, and anxiety; G30.9 Alzheimer's disease, unspecified; R41.82 Altered mental status, unspecified; G35 Multiple sclerosis; E78.5 Hyperlipidemia, unspecified; I10 Essential (primary) hypertension